=== PATIENT | male | born 1990 | race African-American/Black ===

== ENCOUNTER 2021-08-17 19:16 | Emergency (ER) | payer OTHER ==
[~2021-08-17] VITALS: Ht 170.2 cm; Wt 94.3 kg
[2021-08-17 19:18] VITALS: BP 151/94
[2021-08-17 20:22] LABS: APPEARANCE,URINE CLEAR (CLEAR); BILIRUBIN,URINE SMALL (NEGATIVE); COLOR,URINE ORANGE (YELLOW); GLUCOSE, URINE (UA) 100 mg/dL (NEGATIVE); KETONES,URINE 5 mg/dL (NEGATIVE); LEUKOCYTE ESTERASE ,URINE NEGATIVE (NEGATIVE); NITRATE,URINE POSITIVE (NEGATIVE); OCCULT BLOOD,URINE NEGATIVE (NEGATIVE); PROTEIN,URINE 30 mg/dL (NEGATIVE)
[2021-08-17 20:30] LABS: BACTERIA,URINE Rare /HPF (None Seen); RBC,URINE 0-1 /HPF (0-1); SQUAMOUS EPITHELIAL CELL,UR Rare /HPF (0-2); WBC,URINE 0-1 /HPF (0-1)
[2021-08-17 20:31] LABS: HYALINE CASTS, URINE 0-1 /LPF (0-1 /LPF); MUCUS,URINE Rare LPF (None Seen)
[2021-08-17] MEDS ORDERED: AZITHROMYCIN 250 MG TABLET PO ONE (21:00)
[2021-08-17] MEDS ORDERED: CEFTRIAXONE 1G VIAL IM ONE (21:00)
[2021-08-18 08:35] LABS: RAPID PLASMA REAGIN NONREACTIVE (NONREACTIVE)
[2021-08-23 06:14] LABS: HERPES SIMPLEX VIRUS-1 BY PCR Negative (Negative); HERPES SIMPLEX VIRUS-2 BY PCR Negative (Negative)
== END 2021-08-17 21:31 | disposition home or self-care (01) ==
LOC: EDH 19:16
DX: Z20.2 Contact with and (suspected) exposure to infections with a predominantly sexual mode of transmission (principal); I10 Essential (primary) hypertension
CPT/HCPCS: 36415; 81001; 86592; 86701; 87088; 87390; 87486; 87529; 87797; 96372; 99283; J0696